=== PATIENT | female | born 2000 | race Caucasian/White ===

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

== ENCOUNTER → 2022-01-14 | Outpatient (CLI) | payer BC | END | disposition home or self-care (01) | LOC: LAB 12:35 | PROVIDERS: ATTEND Pediatrics Adolescent Medicine | DX: Z01.84 Encounter for antibody response examination (principal) ==